=== PATIENT | female | born 1935 | race Caucasian/White ===

== ENCOUNTER → 2019-01-10 | Outpatient (CLI) | payer MEDICARE, BC ==
[~2019-01-10] MED LIST: ALPHAGAN OP; AMLODIPINE BESY10 MG PO; AMLODIPINE10 MG PO; ASPIRIN 81M81 MG/TA2 PO; ASPIRIN E.C. 8181 MG PO; B-1250 MCG PO; CALCIUM + D 5001 TAB PO; CALCIUM + D 6001 TA1 PO; CALCIUM 600 + V1 TAB PO; CALCIUM200 MG PO; CARDI-OMEGA1000 MG PO; CEFTIN 250250 MG/TAB PO; CELEXA 20MG20 MG/TA1 PO; CELEXA 20MG20 MG/TAB PO; CITALOPRAM20 MG PO; CO Q-1010 MG PO; CO-Q-10 100 MG-1 SGL PO; COQ10150 MG; COUMADIN 3MG3 MG/TAB PO; DILAUDID 2MG TAB2 MG PO; EPA FISH OIL1000 MG PO; FEROSUL325 MG PO; FISH OIL CONC1000 MG PO; FISH OIL1000 MG PO; FLAX SEED; FLAX SEED OIL1000 MG PO; FOLIC ACID0.4 MG PO; FORTAMET1000 MG PO; GLUCOPHAGE1000 MG PO; HYDROCODONE; HYDROCODONE/APAP; LANTUS SOLOS100 U/ML SC; LANTUS100 U/ML SC; LANTUS100 U/ML SQ; LEVOTHYROXINE0.05 MG PO; LIVALO; METFORMIN1000 MG PO; NORVASC 10MG10 MG PO; PERC2.5TAB PO; PERCOCET 325 MG1 TA2 PO; PYRIDIUM 100MG100 MG PO; SYNTHROID0.05 MG/TA PO; SYNTHROID0.5 MG IJ; SYNTHROID0.5 MG PO; TOPROL XL 25MG25 MG; TOPROL XL 25MG25 MG PO; TRAVATAN 2.5 M2.5 M1 OU; ULTRAM 50MG TAB50 MG PO; VITAMIN B-12100 MCG PO; VITAMIN B12500 MCG PO; VITAMIN C500 MG PO; VITAMIN D1000 IU; VITAMIN D1000 IU PO; VITAMIN E 400 U4001 PO; VITAMIN E100 I3; VITAMIN E100 I3 PO; VITAMIN E1000 U/CAP PO
== END ==
LOC: COL.RAD 15:16
DX: S00.83XA Contusion of other part of head, initial encounter (principal); I67.82 Cerebral ischemia; J34.89 Other specified disorders of nose and nasal sinuses

== ENCOUNTER → 2020-07-12 | Outpatient (CLI) | payer MEDICARE, BC | LOC: COL.RAD | DX: G31.9 Degenerative disease of nervous system, unspecified (principal); F03.91 Unspecified dementia, unspecified severity, with behavioral disturbance; I67.82 Cerebral ischemia ==

== ENCOUNTER → 2020-10-06 | Outpatient (CLI) | payer MEDICARE, BC | LOC: COL.RAD 07:30 | DX: K76.0 Fatty (change of) liver, not elsewhere classified (principal); K83.8 Other specified diseases of biliary tract; Z90.49 Acquired absence of other specified parts of digestive tract ==